=== PATIENT | male | born 1990 | race Caucasian/White ===

== ENCOUNTER 2025-07-19 11:35 | Emergency (ER) | payer OTHER | END 2025-07-19 13:40 | disposition home or self-care (01) | LOC: MW.ED 11:35 | DX: S42.322A Displaced transverse fracture of shaft of humerus, left arm, initial encounter for closed fracture (principal); Z79.899 Other long term (current) drug therapy; Z88.1 Allergy status to other antibiotic agents; W11.XXXA Fall on and from ladder, initial encounter; Y93.01 Activity, walking, marching and hiking | CPT/HCPCS: 29105; 73060; 73090; 96374; 99283; J2270 ==